=== PATIENT | female | born 1995 | race African-American/Black ===

== ENCOUNTER 2018-09-05 20:15 | Emergency (ER) | payer MEDICAID ==
[~2018-09-05] VITALS: Ht 154.9 cm; Wt 73.0 kg
[2018-09-05 20:46] VITALS: BP 143/71
[2018-09-05 22:20] LABS: *AMPHETAMINES SCREEN URINE NEGATIVE (NEGATIVE); *BARBITURATES SCREEN URINE NEGATIVE (NEGATIVE); *BENZODIAZEPINES SCREEN URINE NEGATIVE (NEGATIVE); *COCAINE SCREEN URINE NEGATIVE (NEGATIVE)
[2018-09-05 22:21] LABS: CANNABINOID URINE SCREEN NEGATIVE (NEGATIVE); METHADONE URINE SCREEN NEGATIVE (NEGATIVE); OPIATES URINE SCREEN NEGATIVE (NEGATIVE); PHENCYCLIDINE URINE SCREEN NEGATIVE (NEGATIVE)
== END 2018-09-05 23:55 | disposition home or self-care (01) ==
LOC: ER 20:15
DX: O99.413 Diseases of the circulatory system complicating pregnancy, third trimester (principal); R00.0 Tachycardia, unspecified; O26.893 Other specified pregnancy related conditions, third trimester; R68.2 Dry mouth, unspecified; R56.9 Unspecified convulsions; F11.10 Opioid abuse, uncomplicated; Z3A.35 35 weeks gestation of pregnancy; Z91.030 Bee allergy status; Z88.8 Allergy status to other drugs, medicaments and biological substances; Z98.890 Other specified postprocedural states
CPT/HCPCS: 80305; 81025; 93005; 99284